=== PATIENT | female | born 1985 ===

== ENCOUNTER 2017-03-14 20:38 | Emergency (ER) | payer OTHER ==
[~2017-03-14] VITALS: Ht 167.6 cm; Wt 76.2 kg
[~2017-03-14 20:38] MED LIST: PRENATABS RX T1 EACH PO; SYNTHROID200 MCG PO
== END 2017-03-14 22:27 | disposition home or self-care (01) ==
LOC: ER 20:38
DX: S92.414A Nondisplaced fracture of proximal phalanx of right great toe, initial encounter for closed fracture (principal); W22.8XXA Striking against or struck by other objects, initial encounter; Y93.89 Activity, other specified; Y92.098 Other place in other non-institutional residence as the place of occurrence of the external cause; Y99.8 Other external cause status